=== PATIENT | female | born 1960 | race Caucasian/White ===

== ENCOUNTER → 2024-08-09 | Outpatient (CLI) | payer MEDICAID, SELFPAY ==
--- NOTE | 2024-08-09 09:48 | XR_ITS ---
EXAMINATION: PET/CT FUSION SKULL TO THIGH EXAM DATE AND TIME: August 09, 2024 1044 hours Comparison March 01, 2024 INDICATIONS: Diagnosis lung cancer, restaging post treatment CTDI:vol (mGy) 2.67 DLP: (mGycm) 210.51 PROCEDURE: 15.78 mCi FDG was administered intravenously To allow for distribution and uptake of radiotracer, the patient was allowed to rest quietly in a shielded room. Imaging was performed on an integrated 16-slice PET/CT scanner, with scanning from the skull base to the mid thigh. Serum blood glucose at the time of the injection was measured 75 mg/dL. CT scanning was performed without oral or intravenous contrast material. FINDINGS: Head and Neck: There is no grace hypermetabolism in the neck. The visualized portions of the brain are normal in appearance on CT. Chest: Weakly hypermetabolic pulmonary mass left upper lobe, 27 x 18 mm compared to 24 x 18 mm on March 01, 2024 Suspicious for new 8 mm pulmonary nodule contiguous with the left hilum Abdomen and Pelvis: There is no grace hypermetabolism in retroperitoneal or pelvic chains. The spleen is normal in size and FDG avidity. Musculoskeletal: Marrow uptake is within normal range. IMPRESSION: Pulmonary nodule left upper lobe measures 27 x 18 mm compared to 24 x 18 mm on March 01, 2024 Suspicious for new 8mm pulmonary nodule contiguous with the left hilum, suggest follow-up CT high-resolution chest without contrast
== END | disposition home or self-care (01) ==
PROVIDERS: PCP Family Medicine
DX: R91.1 Solitary pulmonary nodule (principal); C34.90 Malignant neoplasm of unspecified part of unspecified bronchus or lung
CPT/HCPCS: 78815; A9552

== ENCOUNTER 2025-02-19 13:47 | Outpatient (RCR) | payer MEDICARE, SELFPAY ==
--- NOTE | 2025-01-24 10:26 | CTCFLWUP_ITS ---
[facility] [address] [place], [place] [address] FOLLOW-UP NOTE Date: 01/24/2025 MR#: [id number] Name: OLIVIA GIRON : 1960 Dx: C34.12 Malignant neoplasm of upper lobe, left bronchus or lung Identification. Patient with initial colorectal CA treated with chemoradiation and surgery Recurrent colon CA pT3pN2 splenic flexure s/p resection colostomy. September 2022 Left upper lobe adenocarcinoma biopsy 04/21/2023 received 6000 cGy via VMAT method to the consistent with lung primary. with concurrent chemo ( Dr Harris) completed 09/09/2023. PET scan 08/09/2024 pulmonary nodule 27 x 18 mm compared to 24 x 18 mm on March 01, 2024. There was also a new 8 mm pulm nodule contiguous left hilum. Evaluated by radiation oncology Carmine Alvarado in [place]. Dr. Trent who evaluated patient felt that additional treatment may be possible by recommended be done closer to home and also the ability to match with previous ariza. Patient appears well. Lungs clear. No adenopathy or subcutaneous nodules. Patient reportedly had CT scan of the chest at [facility] 2 months ago. I have asked for this to be sent today. Spoke to patient about SBRT to the lung recurrence which she had heard about from the Dr Jaya mustafa probable [place]. Went over the course of treatment side effects discussed. Electronically signed by: Santos Morris M.D. 01/24/2025 10:24 AM
--- NOTE | 2025-01-24 10:27 | CTCTXPLN_ITS ---
[facility] [address] [place], [place] [address] Physician Clinical Treatment Planning Note Date of Service: 01/24/2025 Name: OLIVIA GIRON : 1960 The patient has agreed to proceed with Radiation therapy. Tests and supporting medical records were interpreted to assist in defining the tumor location and extent of disease. Further imaging will be necessary to contour and delineate the volume to which the XRT will be provided. A. Treatment Intent: Curative B. Modality: 6 MV C. Requested Technique: SBRT D. Treatment Site: E. Critical structures to be contoured on plan: F. In order to accomplish this plan, I am ordering/Prescribing the followin. Simulations (s) will be performed to accomplish a reproducible treatment position, to determine optimal treatment portals/beam arrangements, to design beam modifying devices and verify treatment portals on patient prior to the commencement of Radiation Therapy. Left chest Vac-Nessa 2. Devices; for immobilization and beam shapin. CT Guidance for placement of XRT ariza Scan area: 4. Portal images Frequency: 5. Invivo transit dose measurement once per week on all VMAT patients. 6. Special Physics Consult Requested for: SBRT 7. Other requests: Special procedure G. Dose Objectives: Curative Electronically signed by: Santos Morris M.D. 01/24/2025 10:25 AM
--- NOTE | 2025-01-24 10:34 | CTCTXPLNST_ITS ---
Radiation Oncology Treatment Planning Sheet Name: OLIVIA GIRON MR#: [id number] : 1960 Dx: C34.12 Malignant neoplasm of upper lobe, left bronchus or lung Date of Service: 01/24/2025 Account #: ?? Pt Treatment Intent: curative palliative other: Stage: Procedure CPT # Ordered Spec. Procedure 06465 SBRT 1 Mcgrath Complex (set-up) 57438 T3- T8 4D Chest 1 Mcgrath Simple 38740 IMRT Plan 74572 1 MLC Devices VMAT 53541 6 Mcgrath 3 D 74678 TRTMT dev Complex 67473 vaklok 1 TRTMT dev simple 52789 Basic Jeff 80364 7 Special Dosimetry 65938 Spec Physics 94470 Port Films 09236 SRS Cranial/1FX 54031 SBR 5 FX or Less /ex: 5 = 5 fx 41599 5000 5 IMRT Simple 84336 IMRT Complex 46028 IGRT 37421 5 Rad del com 6- 02739 Rad del com 11 72832 Cont Med Physics 42687 3 Treatment Planning 50146 1 Rad del com 20 mev 56356 Rad del inter 01-01 43836 Rad del inter 06-12 41288 Rad del simple 6-10 65231 Rad del simple 06-12 82219 Special Port Plan 26814 TRTMT dev inter 48663 Isodose Complex 31848 Isodose simple 63855 Resp Motion Mgmt Simulation 60296 Placement of Fiducial Markers 80355 Electronically Signed By: Santos Morris MD, RIKKI 01/24/2025 10:32 AM
== END 2025-02-21 23:59 | disposition home or self-care (01) ==
LOC: SCTC 13:47
PROVIDERS: PCP Nurse Practitioner; Referring Provider Radiology Therapeutic Radiology; Visit Provider Radiology Therapeutic Radiology
DX: Z51.0 Encounter for antineoplastic radiation therapy (principal); C34.12 Malignant neoplasm of upper lobe, left bronchus or lung
CPT/HCPCS: 77014; 77290; 77300; 77301; 77334; 77338; 77373; 99212; G0463

== ENCOUNTER 2025-03-19 13:55 | Outpatient (RCR) | payer MEDICARE, SELFPAY ==
--- NOTE | 2025-02-26 16:32 | CTCTRTNOTE_ITS ---
[facility] [address], [place] [address] Weekly Management Date: 02/26/2025 ?? Name: OLIVIA VÁZQUEZKIRTI Wiggins.: 1960 A. Patient is currently at 2000 cGy. B. Patient is tolerating treatment well. C. . D. Resume radiation therapy. Electronically signed by: Santos Morris M.D. 02/26/2025 4:30 PM
== END 2025-03-24 23:59 | disposition home or self-care (01) ==
LOC: SCTC 13:55
PROVIDERS: PCP Nurse Practitioner; Referring Provider Nurse Practitioner; Visit Provider Radiology Therapeutic Radiology
DX: Z51.0 Encounter for antineoplastic radiation therapy (principal); C34.12 Malignant neoplasm of upper lobe, left bronchus or lung
CPT/HCPCS: 77336; 77373

== ENCOUNTER 2025-06-18 09:15 | Outpatient (RCR) | payer MEDICARE, SELFPAY ==
--- NOTE | 2025-06-18 10:06 | CTCTSUMM_ITS ---
[facility] [address], [place] [address] Treatment Summary Date: 06/18/2025 MR#: [id number] Name: OLIVIA GIRON : 1960 Dx: C34.12 Referring Physician: Abundio Harris MD (A) Diagnosis: [ICD10] C34.12 Malignant neoplasm of upper lobe, left bronchus or lung (B) Aim of Treatment: ??Curative (C) Concomitant Chemotherapy: No (D) Radiation Dates: Prior pelvis radiation for colon cancer 4800 cGy 2004 lung radiation 6000 cGy 2023. SBRT dates 02/26/25, 03/05/25, 03/12/25, Treatment Prescription DANIELLA VMAT 6 MV PHOT 5,000 cGy 5 1,000 cGy Approved (E) All ariza were treated using customized MLC Blocks (F) Finding at Discharge: Seen for first follow-up 06/18/2025. Patient was having pain in her right hip and stated that this was arthritis related and is looking forward to having hip surgery. Patient had no chest symptoms. Will schedule patient for PET before next follow-up in 3 months. (G) Discharge Instructions and F/U Appt was given: The patient was also advised to continue follow-up with Dr. Harris and primary care physician: Electronically signed by: Santos Morris MD, JOSE ALBERTOR 06/18/2025 10:03 AM
== END 2025-06-23 23:59 | disposition home or self-care (01) ==
LOC: SCTC 09:15
PROVIDERS: PCP Nurse Practitioner; Referring Provider Nurse Practitioner; Visit Provider Radiology Therapeutic Radiology
DX: C34.12 Malignant neoplasm of upper lobe, left bronchus or lung (principal)
CPT/HCPCS: 99213; G0463

== ENCOUNTER 2025-06-25 08:24 | Outpatient (AMB) | payer MEDICARE, SELFPAY ==
[2025-06-25 08:36] VITALS: BP 135/75; PULSE 72; RESP 19; TEMP 36.2; O2SAT 98; BMI 20.9
--- NOTE | 2025-06-25 08:36 | PD.ORTHCLVIS ---
Vital signs 06/25/25 08:36 Height 1.68 m Height Method Stated Weight 58.967 kg Weight Measurement Method Standing Scale BMI 20.9 BP 135/75 H Blood Pressure Source Automatic Cuff Blood Pressure Location Left Upper Arm Position Sitting Respiration 19 Pulse 72 Pulse Source Monitor Temp 97.1 F Temp Source Temporal Artery Scan Pulse Oximetry (%) 98 Oxygen Delivery Method Room Air Med/Allergies Allergies & Medications Allergies No Known Allergies Allergy (Verified 06/25/25 08:41) Medication Reconciliation No Known Home Medications 06/25/25 [History Confirmed 06/25/25] Exam Exam Patient is in no acute distress and is cooperative with the examination today. Breathing is nonlabored. In no respiratory distress. Patient has no paraspinal tenderness. Spinal deformity cannot be appreciated. The gait of the patient is nonantalgic Bilateral extremities were evaluated and demonstrates sensation intact to light touch. Palpable pedal pulses are present. No significant edema is present. Bilateral knees were examined and the patient has full strength and range of motion.. The left hip was examined. Patient was able to flex to 90 degrees, adduct to 30 degrees, abduct to 40 degrees, internally rotate to 20 degrees, and externally rotate to 20 degrees. Patient has a negative logroll. Stinchfield is negative. The patient is nontender diffusely to touch. The right hip was examined. Patient was able to flex to 90 degrees, adduct to 30 degrees, abduct to 40 degrees, internally rotate to 0 degrees, and externally rotate to 20 degrees. Patient has positive logroll. Patient is 1 cm shorter on the right X-rays from [facility] demonstrates severe joint space narrowing and osteophytes Assessment and Plan Problem List (1) Arthritis of right hip: Status: Acute Plan: ASSESSMENT AND PLAN 1. Right hip pain: The right hip pain is attributed to advanced osteoarthritis, which has been present for over 8 years. The pain starts in the groin and radiates to the hip, back, and down to the knee. There is a significant limp and a feeling of being shorter on the right side. A hip replacement is recommended as the definitive treatment. However, given the recent remission from lung cancer (3 months ago) and severe atherosclerosis, medical and cardiac clearance are required before proceeding with surgery. Use of a walker is advised for stability due to dizziness and balance issues. 2. Severe atherosclerosis: Severe atherosclerosis is present, indicating calcified vessels and potential cardiac issues. There is a history of smoking and lung cancer, necessitating a admissions counselor's evaluation to ensure the heart is in good condition for surgery. A referral to a admissions counselor will be made for pre-surgical clearance. 3. Lung cancer: Remission from lung cancer has been achieved, with the patient having completed targeted radiation therapy. Remission has been maintained for 3 months. Continued follow-up with the oncologist is scheduled for 07/03/2025, where blood work will be ordered. Advanced Care Planning Discussion Advance care planning discussed with:: patient Office Procedures GNS Level of Care Nursing/Assessment Patient Status: Initial/New Patient Nursing Assessment/Reassesment: Medication Reconciliation, Update PMH in EMR and Vital Signs Coordination of Care: Complex Care and Chronic Disease 1-5, Education Complex Pt/Fam, Consent,records obtained, informed consent, 1 Ins Authorization, Lab and Imaging orders, Results/Orders obtained and Staff clarify orders New Patient Charge New Patient Point Assignment: 1124 New Patient Point Charge: CONVEYOR MONITOR Level 4 ([id number]) MA Intake Visit Data Collection New Patient or Established: New Patient (never been to [facility]) Reason for Visit:: RIGHT HIP PAIN Seen by Clinical Staff ONLY (RN/MA): No PCP or OBGYN visit in last 3 months: Yes Hx Now: No Do You Feel Safe at Home: Yes Authorities Contacted: N/A Questionairres Past Medical History Past Medical History Have you ever been diagnosed with any of the following: Neurological Problems Cerebrovascular Accident (CVA): No Transient Ischemic Attacks (TIA): No Dementia: No Alzheimer's Disease: No Parkinson's Disease: No Brain Tumor: No Meningitis: No Seizures: No Epilepsy: No Multiple Sclerosis: No Cerebral Palsy: No Amyotrophic Lateral Sclerosis (ALS/Tabatha Gehrig's): No Guillain-Sachse Syndrome: No Spina Bifida: No Paralysis: No Peripheral Neuropathy: No Bennett's Palsy: No Subdural Hematoma: No Migraine: No Head Trauma: No Spinal Cord Injury: No Traumatic Brain Injury: No Cardiology Problems Myocardial Infarction: No Cardiac Arrhythmia: No Atrial Fibrillation: No Angina: No Heart Murmur: No Coronary Artery Disease: No Atherosclerotic Heart Disease: No Peripheral Vascular Disease: No Hypercholesterolemia: No Aneurysm: No Congestive Heart Failure: No Congenital Heart Disease: No Valvular Heart Disease: No Rheumatic Fever: No Cardiomyopathy: No Edema: No Pericarditis: No Cellulitis: No Deep Vein Thrombosis: No Hypertension: No Hypotension: No Varicose Veins: No Respiratory Problems Chronic Obstructive Pulmonary Disease (COPD): No Asthma: No Bronchitis: No Emphysema: No Pneumonia: No Pulmonary Fibrosis: No Tuberculosis: No Pulmonary Embolism: No Pulmonary Edema: No Sleep Apnea: No Stomache/Intestinal Problems Hepatitis: No Cirrhosis: No Pancreatitis: No Celiac Disease: No Gall Bladder Disease: No Gastrointestinal Bleed: No Esophageal Varices: No Allen's Esophagus: No Colitis: No Ulcerative Colitis: No Diverticulitis: No Diverticulosis: No Ulcer: No Colorectal Cancer: Yes Irritable Bowel: No Crohn's Disease: No Obstructive Bowel: Yes Hiatal Hernia: No Hemorrhoids: No Gastroesophageal Reflux Disease: No Obesity: No Genital/Urinary Problems Renal Disease: No Kidney Stones: No Polycystic Kidney Disease: No Neurogenic Bladder: No Inguinal Hernia: No Dialysis: No Reproductive Problems Breast Cancer: No Endometriosis: No Genital Herpes: No Gonorrhea: No Pelvic Inflammatory Disease: No Previous Pregnancies: Yes () Syphilis: No Uterine Prolapse: No Musculoskeletal Problems Muscular Dystrophy: No Myasthenia Gravis: No Marfan's Syndrome: No Bone Cancer: No Arthritis: Yes Rheumatoid Arthritis: No Osteoporosis: Yes Degenerative Disk Disease: No Gout: No Scoliosis: No Carpal Tunnel Syndrome: No Fibromyalgia: No Fractures: No Degenerative Joint Disease: Yes (LUMBAR-5, BONE ON BONE BILATERAL HIPS.) Osteomyelitis: No Poliovirus: No Head,Eye,Nose,Throat Problems Cataracts: No Glaucoma: No Blind: No Retinal Detachment: No Macular Degeneration: No Chronic Ear Infections: No Deafness: No Eye Prosthesis: No Endocrine Problems Diabetes Mellitus Type 1: No Diabetes Mellitus Type 2: No Hypoglycemia: No [place]'s Syndrome: No Hinsdale's Disease: No Hyperthyroidism: No Hypothyroidism: No Parathyroid Disease: No Pituitary Disease: No Systemic Lupus Erythematosus: No Syndrome of Inappropriate Antidiuretic Hormone: No Adrenal Disease: No Graves' Disease: No Blood Problems Anemia: No Leukemia: No Hemophilia: No Thalassemia: No Sickle Cell Disease: No Clotting Problems: No Psychologic Problems Schizophrenia: No Recreational Drug Use: No Bipolar Disorder: No Depression: No Anxiety: No Behavior Problems: No Self-Mutilation: No Attention Deficit Disorder: No Attention Deficit Hyperactivity Disorder: No Depression: No Post Traumatic Stress Disorder: No Eating Disorder: No Other Problems Hospitalization: Yes (FOR COLON SURGERIES) Down Syndrome: No Autism: No Developmental Delay: No Shingles: No Falls: No Blood Transfusions: Yes Blood Transfusion Reaction: No Anesthesia Reactions: No Organ Transplant: No Chemotherapy: Yes Radiation Therapy: Yes (18 YEARS AGO.) Hyperbaric Therapy: No MRSA: No VRSA: No Vancomycin-Resistant Enterococci: No Human Immunodeficiency Virus (HIV): No Chicken Pox: Yes Measles: No Mumps: Yes Rubella (Lebanese Measles): No Pertussis: No Clostridium Difficile: No Cancer: Yes Cervical Cancer: No Lung Cancer: Yes (NEWLY DIAGNOSED FROM COLON CA) Ovarian Cancer: No Surgical History Carotid Endarterectomy: No Coronary Artery Bypass Graft: No Valve Replacement: No Hysterectomy: Yes Pacemaker: No Thyroidectomy: No Subjective Visit Visit for: new patient and hip (RIGHT) Immunization / Flu Flu Vaccine in the Last 12 Months: No Flu Vaccine Exclusion Criteria: Refused by Patient History of Present Illness Chief complaint: RIGHT HIP PAIN Date of injury / onset of symptoms: 8 YEARS HISTORY OF PRESENT ILLNESS IKannan, have obtained verbal consent from the patient, to be recorded during this encounter which may include, but not limited to, medical history, examination, treatment plans, and relevant health information.? Patient was informed that recording will be read and reviewed by myself before inclusion in the medical chart. The patient is a 64-year-old female presenting with right hip pain that has persisted for 8 years. She was cleared of cancer 3 months ago, having had colon cancer twice and lung cancer once. She reports experiencing back pain, hip pain, and leg pain. She has not received any injections or physical therapy and only takes ibuprofen for pain management. She describes the pain as originating in the groin, extending to her hip, back, and thigh. The pain, which she attributes to advanced osteoarthritis, has been present for over 8 years. She reports feeling shorter on the right side and limps significantly. She also experiences dizziness and balance issues when closing her eyes, which she has not discussed with her primary care provider. She reports a daily loss of muscle mass. She has a history of colon cancer, having undergone treatment twice, and lung cancer, for which she received targeted radiation therapy. She has been in remission for 3 months and is scheduled to see her oncologist on 07/03/2025 for blood work. She does not have a admissions counselor and reports no history of COPD. She has a history of smoking but has since quit. Personal History Additional comments: CLEARED FROM CANCER 02/2025 HAS COLON CANCER 2 TIMES AND LUNG CANCER Pain Pain level (0-10): 8 Pain duration: ALL DAY Pain location: groin, inside (medial), outside (lateral), anterior and posterior Pain quality: sharp, dull and aching Pain timing: night, increases with activity and stairs Associated signs & symptoms: numbness, weakness and stiffness Ambulatory data Ambulatory device: none Treatments Improvement with previous injections: No Improvement with PT: No Improvement with NSAIDS: yes (IBUPROFEN) Review of Systems Review of Systems: All systems negative unless otherwise noted in HPI.
== END 2025-06-25 09:20 | disposition home or self-care (01) ==
LOC: HODSRG 08:24
PROVIDERS: PCP Nurse Practitioner; Referring Provider Nurse Practitioner; Supervising Provider Orthopaedic Surgery Adult Reconstructive Orthopaedic Surgery; Visit Provider Orthopaedic Surgery Adult Reconstructive Orthopaedic Surgery
DX: M16.11 Unilateral primary osteoarthritis, right hip (principal); M25.561 Pain in right knee; I70.90 Unspecified atherosclerosis; Z85.038 Personal history of other malignant neoplasm of large intestine; Z85.118 Personal history of other malignant neoplasm of bronchus and lung; Z92.3 Personal history of irradiation
CPT/HCPCS: 99204; G0463

== ENCOUNTER → 2025-07-16 | Outpatient (CLI) | payer MEDICARE, SELFPAY ==
--- NOTE | 2025-07-16 10:15 | XR_ITS ---
EXAMINATION: PET/CT FUSION SKULL TO THIGH EXAM DATE AND TIME: July 16, 2025, 1103 hours, comparison PET/CT scan August 09, 2024 INDICATIONS: Post treatment diagnosis lung cancer, pulmonary nodule left upper lobe 27 x 18 mm, suspicious for new 8 mm pulmonary nodule contiguous with the left hilum on PET/CT scan August 09, 2024 CTDI:vol (mGy) 3.89 DLP: (mGycm) 317 PROCEDURE: Date 882 mCi FDG was administered intravenously To allow for distribution and uptake of radiotracer, the patient was allowed to rest quietly in a shielded room. Imaging was performed on an integrated 16-slice PET/CT scanner, with scanning from the skull base to the mid thigh. Serum blood glucose at the time of the injection was measured 105 mg/dL. CT scanning was performed without oral or intravenous contrast material. FINDINGS: Head and Neck: There is no grace hypermetabolism in the neck. The visualized portions of the brain are normal in appearance on CT. Chest: Stable poorly defined non-hypermetabolic pulmonary nodule left upper lobe, ill-defined margins, difficult to measure, approximately 26 x 22 mm No new pulmonary nodules noted Abdomen and Pelvis: There is no grace hypermetabolism in retroperitoneal or pelvic chains. The spleen is normal in size and FDG avidity. Musculoskeletal: Marrow uptake is within normal range. IMPRESSION: Stable pulmonary mass left upper lobe compared to PET/CT scan August 09, 2024 No new pulmonary masses
== END | disposition home or self-care (01) ==
LOC: CDIM 10:22
PROVIDERS: PCP Nurse Practitioner; Referring Provider Radiology Therapeutic Radiology; Visit Provider Radiology Therapeutic Radiology
DX: R91.1 Solitary pulmonary nodule (principal); C34.12 Malignant neoplasm of upper lobe, left bronchus or lung
CPT/HCPCS: 78815; A9552